=== PATIENT | male | born 1995 | race Two or more races ===

== ENCOUNTER 2020-10-29 14:44 | Emergency (ER) | payer MEDICAID, OTHER ==
--- OUTSIDE RECORDS SUMMARY | 2020-10-29 15:13 | EXTERNAL MEDICAL SUMMARY RPT | Continuity of Care Document ---
:1995 Demographics Phone Unavailable Preferred Language Unknown Marital Status Unknown Taoism Affiliation Unknown Race Unknown Ethnic Group Unknown Author Organization [facility] Address [address] [place] [address] Phone Allergies Encounters Medications Problems Results
--- NOTE | 2020-10-29 16:33 | ED Physician Documentation ---
History of Present Illness - Stated complaint Stated Complaint: SUN - Chief complaint Chief Complaint: General - Additonal information Additional information: 24-year-old male presents to the emergency department for evaluation of headache and requesting a CAT scan of his head. He is trying to enter into the [employer] and they are holding a place for him. However about 6 years ago he had a head CT completed here in this emergency department which showed a possible lucency in the frontal bone. He did not follow-up with outpatient MRI imaging as recommended. He is unable to join the [employer] unless he has a repeat head CT showing no concerns. He also reports an intermittent headache for much of the last week. He has no fevers, nausea vomiting, diplopia, neck pain. Denies alcohol or drug use. No tobacco use. Headache is frontal behind the left eye. Typically resolves with ibuprofen. Review of Systems Constitutional: reports: Reviewed and negative Eyes: denies: Loss of vision, Decreased vision, Photophobia, Discharge Ears: reports: Reviewed and negative Nose: reports: Reviewed and negative Cardiac: reports: Reviewed and negative Respiratory: reports: Reviewed and negative GI: reports: Reviewed and negative : reports: Reviewed and negative Skin: reports: Reviewed and negative Musculoskeletal: reports: Reviewed and negative PD PAST MEDICAL HISTORY - Past Medical History Past Medical History: No Neuro: Headaches Other Past Medical History: Pt. reports wanting a CT of head to get into the [employer]. PCP was unable to help so Pt. came here. Pt. states abnormal CT about 6 yrs ago. - Past Surgical History Past Surgical History: No - Present Medications Home Medications: Ambulatory Orders Medication Instructions Recorded Confirmed No Known Home Medications 07/14/14 07/14/14 - Allergies Allergies/Adverse Reactions: Allergies Allergy/AdvReac Type Severity Reaction Status Date / Time No Known Drug Allergies Allergy Verified 10/29/20 14:49 - Social History Does the pt smoke?: No Smoking Status: Never smoker Does the pt drink ETOH?: No Does the pt have substance abuse?: No - Immunizations Immunizations are current?: Yes - POLST Patient has POLST: No PD ED PE EXPANDED - General General: Alert, No acute distress, Well developed/nourished - HEENT HEENT: Atraumatic, PERRL, EOMI, Ears normal, Moist mucous membranes - Eyes Eyes: PERRL, Normal accommodation - Cardiac Cardiac: Regular Rate, Radial strong equal, Pedal strong equal, Cap refill < 2 sec. No: Murmur Present - Respiratory Respiratory: Clear to ausultation nena. No: Distress, Labored - Abdomen Abdomen: Normal Bowel sounds. No: Tender to palpation - Extremities Extremities: Normal. No: Deformity - Neuro Neuro: Alert and Oriented X 3, CNII-XII intact, Cerebellar nl, Normal gait, Normal finger nose, Normal speech. No: Nystagmus - GCS Eye Opening: Spontaneous Motor: Obeys Commands Verbal: Oriented Total: 15 Results - Vitals Vitals: Vital Signs - 24 hr 10/29/20 10/29/20 14:49 17:08 Temperature 36.8 C Heart Rate 70 77 Respiratory 16 16 Rate Blood Pressure 160/70 H 140/72 H O2 Saturation 98 100 Oxygen O2 Source Room air - Rads (name of study) CT head Radiology: Final report received (No acute intracranial disease process. 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 He never followed up. He is unable to enter the [employer] unless the CAT scan was repeated. CT today shows no acute process. 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 Results were forwarded to the patient. Emergent return precautions discussed. 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 This is benign and needs no further treatment.
--- NOTE | 2020-10-29 16:55 | CT Report ---
PROCEDURE: HEAD WO INDICATIONS: headache; ? lucency in frontal bone 5 years ago TECHNIQUE: Noncontrast 4.5 mm thick angled axial sections acquired from the foramen magnum to the vertex. For r adiation dose reduction, the following was used: automated exposure control, adjustment of mA and/or kV according to patient size. COMPARISON: 07/14/2014. FINDINGS: Image quality: Excellent. CSF spaces: Basal cisterns are patent. No extra-axial fluid collections. Ventricles are normal in size and shape. Brain: No midline shift. No intracranial masses or hemorrhage. Hunt-white matter interface is norm al. Skull and face: Lucency in the right frontal bone is stable compared to 07/14/2014 and likely represen ts an intraosseous hemangioma. Calvarium and visualized facial bones are intact, without suspicious l esions. Sinuses: Visualized sinuses and mastoids are clear. IMPRESSION: No acute intracranial disease process. Reviewed by: Randa Cheng MD, PhD on 10/29/2020 4:54 PM PDT Approved by: Randa Cheng MD, PhD on 10/29/2020 4:54 PM PDT Station ID: [id number]
[2020-10-29 17:09] VITALS: BP 140/72
== END 2020-10-29 17:44 | disposition home or self-care (01) ==
LOC: ED 14:44
DX: R51.9 Headache, unspecified (principal); R90.89 Other abnormal findings on diagnostic imaging of central nervous system; M89.9 Disorder of bone, unspecified
CPT/HCPCS: 99284

== ENCOUNTER 2021-03-29 15:04 | Outpatient (CLI) | payer OTHER ==
--- NOTE | 2021-03-29 15:57 | XRAY Report ---
PROCEDURE: Chest 2 View X-Ray INDICATIONS: POSTERIOR CYCLITIS, BILATERAL TECHNIQUE: 2 view(s) of the chest. COMPARISON: None. FINDINGS: SUPPORT DEVICES: None. LUNGS/PLEURA: No focal consolidation, pleural effusion or space-occupying pneumothorax. MEDIASTINUM: The cardiomediastinal silhouette is within normal limits. BONES/SOFT TISSUES: No acute abnormality. IMPRESSION: 1.No acute cardiopulmonary abnormality. Reviewed by: Brenton Diego MD on 03/29/2021 3:56 PM PDT Approved by: Brenton Diego MD on 03/29/2021 3:56 PM PDT Station ID: [id number]
[2021-03-29 16:09] LABS: BASOPHILS % (AUTO) 0.2 %; EOSINOPHILS % (AUTO) 0.7 %; HCT - HEMATOCRIT 45.4 % (42.0-52.0); HGB - HEMOGLOBIN 14.9 g/dL (14.0-18.0); LYMPHOCYTES # (AUTO) 1.5 10^3/uL (1.5-3.5); LYMPHOCYTES % (AUTO) 33.3 %; MEAN CORPUSCULAR HEMOGLOBIN 30.5 pg (27.0-31.0); MEAN CORPUSCULAR HGB CONC 32.8 g/dL (32.0-36.0); MEAN CORPUSCULAR VOLUME 92.8 fL (80.0-94.0); MONOCYTES # (AUTO) 0.3 10^3/uL (0.0-1.0); MONOCYTES % (AUTO) 7.2 %; NEUTROPHILS # (AUTO) 2.6 10^3/uL (1.5-6.6); NEUTROPHILS % (AUTO) 58.1 %; PLT - PLATELET COUNT 271 10^3/uL (130-450); RED BLOOD COUNT 4.89 10^6/uL (4.70-6.10); RED CELL DISTRIBUTION WIDTH 11.5 % (12.0-15.0); WHITE BLOOD COUNT 4.4 x10^3/uL (4.8-10.8)
[2021-03-31 10:02] LABS: NIL 0.02 IU/mL; TB1-NIL <0.00 IU/mL
== END 2021-03-29 15:05 | disposition home or self-care (01) ==
LOC: LAB 15:04 → DI 15:05
PROVIDERS: ATTEND Ophthalmology
DX: H30.23 Posterior cyclitis, bilateral (principal)
CPT/HCPCS: 36415; 81599; 82164; 85025; 85651; 86140; 86480